=== PATIENT | female | born 1980 | race Asian ===

== ENCOUNTER 2020-08-16 15:06 | Inpatient (IN) | payer MEDICARE, MEDICAID ==
[~2020-08-16] VITALS: Ht 160 cm; Wt 64.0 kg
[2020-08-16] MEDS ORDERED: OLAN5TAB2 PO (17:09)
[2020-08-16] MEDS ORDERED: INFLUENZA VIRUS VACCINE QVS 2020-21 (6MO+)/PF 60 MCG/0.5 ML SYRINGE IM ONE (18:30)
[2020-08-16] MEDS ORDERED: HALOPERIDOL 5 MG TABLET PO PRN (18:30)
[2020-08-16] MEDS ORDERED: LORazepam 2 MG TABLET PO PRN (18:30)
[2020-08-16] MEDS ORDERED: ZOLPIDEM TARTRATE 10 MG TABLET PO PRN (18:30)
[2020-08-16 19:00] VITALS: BP 124/85
[2020-08-17 00:26] VITALS: BP 112/76
[2020-08-17 08:06] VITALS: BP 117/81
[2020-08-17 08:20] LABS: EOSINOPHILS % (AUTO) 3.8 % (1.0-6.0); HEMATOCRIT 40.7 % (36-46); HEMOGLOBIN 13.5 g/dL (12.0-16.0); LYMPHOCYTES # (AUTO) 2.7 K/uL (1.0-4.8); MEAN CORPUSCULAR HEMOGLOBIN 28.7 pg (26.0-34.0); MEAN CORPUSCULAR HGB CONC 33.1 G/dL (31.0-37.0); MEAN CORPUSCULAR VOLUME 87 fL (80-100); MONOCYTES # (AUTO) 0.6 K/uL (0.1-1.0); MONOCYTES % (AUTO) 6.3 % (2.0-9.0); NEUTROPHILS # (AUTO) 5.4 K/uL (1.8-7.7); NEUTROPHILS % (AUTO) 58.9 % (40.0-70.0); PLATELET COUNT (AUTO) 418 K/uL (150-450); RED BLOOD CELL COUNT(AUTO) 4.69 MIL/uL (4.00-5.20)
[2020-08-17 09:08] LABS: ALANINE AMINOTRANSFERASE 13 U/L (12-78); ALBUMIN 3.8 g/dL (3.4-5.0); ALKALINE PHOSPHATASE 65 U/L (46-116); ANION GAP 10 mmol/L (8-16); ASPARTATE AMINOTRANSFERASE 12 U/L (15-37); BILIRUBIN,TOTAL 0.4 mg/dL (0.1-1.0); CARBON DIOXIDE 25 mmol/L (22-29); CHLORIDE 106 mmol/L (98-107); CHOL/HDL RATIO 4.1 (3.9-5.7); CHOLESTEROL 192 mg/dL (131-200); CREATININE 0.54 mg/dL (0.60-1.30); GLOMERULAR FILTR. RATE CALC > 60 mL/min (>60); GLUCOSE,RANDOM 79 mg/dL (70-110); HCG,QUANTITATIVE < 1 mIU/mL (0-6); HDL CHOLESTEROL 47 mg/dL (40-60); LDL CHOL (CALC.) 130 mg/dL (0-130); POTASSIUM 4.1 mmol/L (3.5-5.1); SODIUM SERUM 141 mmol/L (136-145); THYROID STIMULATING HORMONE 3.38 uIU/mL (0.36-3.74); TOTAL PROTEIN, SERUM 7.8 g/dL (6.4-8.2); TRIGLYCERIDES 73 mg/dL (15-150); UREA NITROGEN, BLOOD 9 mg/dL (7-18)
[2020-08-17] MEDS ORDERED: MAGNESIUM HYDROXIDE SUSPENSION 30 ML UDCUP PO PRN (10:15)
[2020-08-17] MEDS ORDERED: ACETAMINOPHEN 325 MG TABLET PO PRN (10:15)
[2020-08-17] MEDS ORDERED: PETROLATUM,WHITE 28 GM JELLY TP PRN (10:15)
[2020-08-17] MEDS ORDERED: CloNIDine HCL 0.1 MG TABLET PO PRN (10:15)
[2020-08-17] MEDS ORDERED: IBUPROFEN 600 MG TABLET PO PRN (10:15)
[2020-08-17] MEDS ORDERED: BACITRACIN 28 GM OINTMENT TP PRN (10:15)
[2020-08-17] MEDS ORDERED: OMEPRAZOLE 20 MG CAPSULE PO PRN (10:15)
[2020-08-17] MEDS ORDERED: ALBUTEROL SULFATE HFA 90 MCG/PUFF 8 GM INHALER IH PRN (10:15)
[2020-08-17] MEDS ORDERED: LOPERAMIDE HCL 2 MG CAPSULE PO PRN (10:15)
[2020-08-17] MEDS ORDERED: DOCUSATE SODIUM 100 MG CAPSULE PO PRN (10:15)
[2020-08-17] MEDS ORDERED: MAG HYDROX/AL HYDROX/SIMETH ES 30 ML SUSPENSION UDCUP PO PRN (10:15)
[2020-08-17] MEDS ORDERED: BENZOCAINE/MENTHOL LOZENGE PO PRN (10:15)
[2020-08-17] MEDS ORDERED: ONDANSETRON HCL 4 MG TABLET PO PRN (10:15)
[2020-08-17 16:21] VITALS: BP 103/61
[2020-08-17] MEDS: QUEtiapine FUMARATE 200 MG TABLET PO SCH (20:46)
[2020-08-18 06:20] VITALS: BP 100/60
[2020-08-18 08:10] VITALS: BP 115/74
[2020-08-18 16:07] VITALS: BP 136/83
[2020-08-18] MEDS: QUEtiapine FUMARATE 200 MG TABLET PO SCH (20:36)
[2020-08-19 00:16] VITALS: BP 126/81
[2020-08-19 08:12] VITALS: BP 106/65
[2020-08-19 16:10] VITALS: BP 111/73
[2020-08-19] MEDS: QUEtiapine FUMARATE 200 MG TABLET PO SCH (20:19)
[2020-08-20 00:34] VITALS: BP 105/67
[2020-08-20 08:17] VITALS: BP 136/78
[2020-08-20 16:05] VITALS: BP 127/79
[2020-08-20] MEDS: QUEtiapine FUMARATE 200 MG TABLET PO SCH (20:18)
[2020-08-21 00:12] VITALS: BP 118/75
[2020-08-21 08:20] VITALS: BP 100/66
[2020-08-21 16:30] VITALS: BP 101/66
[2020-08-21] MEDS: QUEtiapine FUMARATE 200 MG TABLET PO SCH (21:00)
[2020-08-22 01:44] VITALS: BP 111/65
[2020-08-22 08:22] VITALS: BP 104/61
[2020-08-22 17:00] VITALS: BP 100/60
[2020-08-22] MEDS: QUEtiapine FUMARATE 200 MG TABLET PO SCH (20:18)
[2020-08-23 01:33] VITALS: BP 102/63
[2020-08-23 08:20] VITALS: BP 124/62
[2020-08-23 16:10] VITALS: BP 106/65
[2020-08-23] MEDS: QUEtiapine FUMARATE 200 MG TABLET PO SCH (20:50)
[2020-08-24 00:06] VITALS: BP 101/65
[2020-08-24 08:18] LABS: COVID AG,FIA SOURCE NASOPHARYNGEAL
[2020-08-24 08:26] VITALS: BP 114/71
[2020-08-24 16:05] VITALS: BP 104/65
[2020-08-24] MEDS: QUEtiapine FUMARATE 200 MG TABLET PO SCH (20:33)
[2020-08-25 00:11] VITALS: BP 102/64
[2020-08-25 08:12] VITALS: BP 139/78
[2020-08-25 16:27] VITALS: BP 102/67
[2020-08-25] MEDS: QUEtiapine FUMARATE 200 MG TABLET PO SCH (21:00)
[2020-08-26 00:06] VITALS: BP 107/62
[2020-08-26 08:04] VITALS: BP 135/84
[2020-08-26 16:08] VITALS: BP 124/81
[2020-08-26] MEDS: QUEtiapine FUMARATE 200 MG TABLET PO SCH (20:49)
[2020-08-27 00:19] VITALS: BP 113/73
[2020-08-27 08:12] VITALS: BP 106/62
[2020-08-27 16:06] VITALS: BP 100/65
[2020-08-27] MEDS: QUEtiapine FUMARATE 200 MG TABLET PO SCH (21:00)
[2020-08-28 01:36] VITALS: BP 114/75
[2020-08-28 08:05] VITALS: BP 107/68
[2020-08-28 16:04] VITALS: BP 115/88
[2020-08-28] MEDS: QUEtiapine FUMARATE 200 MG TABLET PO SCH (20:31)
[2020-08-29 00:12] VITALS: BP 107/67
[2020-08-29 08:07] VITALS: BP 130/77
[2020-08-29 16:03] VITALS: BP 107/70
[2020-08-29] MEDS: QUEtiapine FUMARATE 200 MG TABLET PO SCH (20:32)
[2020-08-30] VITALS: BP 101/62
[2020-08-30 08:21] VITALS: BP 121/85
[2020-08-30 16:10] VITALS: BP 114/79
[2020-08-30] MEDS: QUEtiapine FUMARATE 200 MG TABLET PO SCH (20:38)
[2020-08-31] VITALS: BP 94/55
[2020-08-31 08:07] VITALS: BP 103/69
[2020-08-31 16:09] VITALS: BP 126/85
[2020-08-31] MEDS: QUEtiapine FUMARATE 300 MG TABLET PO SCH (20:15)
[2020-09-01 00:23] VITALS: BP 102/68
[2020-09-01 08:07] LABS: COVID AG,FIA SOURCE NASOPHARYNGEAL
[2020-09-01 08:34] VITALS: BP 105/71
[2020-09-01 16:07] VITALS: BP 100/60
[2020-09-01] MEDS: QUEtiapine FUMARATE 300 MG TABLET PO SCH (20:40)
[2020-09-02 00:17] VITALS: BP 104/62
[2020-09-02 08:16] VITALS: BP 112/71
[2020-09-02 16:12] VITALS: BP 111/15
[2020-09-02] MEDS: QUEtiapine FUMARATE 300 MG TABLET PO SCH (20:32)
[2020-09-03 00:04] VITALS: BP 109/60
[2020-09-03 08:07] VITALS: BP 112/73
[2020-09-03 16:06] VITALS: BP 106/66
[2020-09-03] MEDS: QUEtiapine FUMARATE 300 MG TABLET PO SCH (20:09)
[2020-09-04 00:05] VITALS: BP 82/57
[2020-09-04 11:39] VITALS: BP 98/66
[2020-09-04 16:14] VITALS: BP 103/64
[2020-09-04] MEDS: QUEtiapine FUMARATE 300 MG TABLET PO SCH (20:41)
[2020-09-05 00:08] VITALS: BP 101/62
[2020-09-05 08:06] VITALS: BP 109/68
[2020-09-05 16:07] VITALS: BP 107/63
[2020-09-05] MEDS: QUEtiapine FUMARATE 300 MG TABLET PO SCH (20:37)
[2020-09-06] VITALS: BP 78/48
[2020-09-06 08:12] VITALS: BP 110/80
[2020-09-06 16:07] VITALS: BP 99/68
[2020-09-06] MEDS: QUEtiapine FUMARATE 300 MG TABLET PO SCH (21:03)
[2020-09-07 00:35] VITALS: BP 101/63
[2020-09-07 08:07] VITALS: BP 104/74
[2020-09-07 09:03] LABS: COVID AG,FIA SOURCE NASOPHARYNGEAL
[2020-09-07 16:03] VITALS: BP 100/71
[2020-09-07] MEDS: QUEtiapine FUMARATE 200 MG TABLET PO SCH (20:19)
[2020-09-08 01:26] VITALS: BP 109/65
[2020-09-08 08:18] VITALS: BP 102/77
[2020-09-08 16:08] VITALS: BP 102/60
[2020-09-08] MEDS: QUEtiapine FUMARATE 200 MG TABLET PO SCH (20:10)
[2020-09-09 04:18] VITALS: BP 100/68
[2020-09-09 08:05] VITALS: BP 100/66
[2020-09-09 16:12] VITALS: BP 105/62
[2020-09-09] MEDS: HALOPERIDOL 10 MG TABLET PO SCH (20:43)
[2020-09-09] MEDS: QUEtiapine FUMARATE 200 MG TABLET PO SCH (20:43)
[2020-09-10 04:00] VITALS: BP 102/64
[2020-09-10 08:09] VITALS: BP 109/64
[2020-09-10 16:11] VITALS: BP 114/66
[2020-09-10] MEDS: HALOPERIDOL 10 MG TABLET PO SCH (20:28)
[2020-09-10] MEDS: QUEtiapine FUMARATE 200 MG TABLET PO SCH (20:28)
[2020-09-11 00:12] VITALS: BP 118/69
[2020-09-11 08:07] VITALS: BP 107/65
[2020-09-11 16:19] VITALS: BP 103/63
[2020-09-11] MEDS: QUEtiapine FUMARATE 200 MG TABLET PO SCH (20:32)
[2020-09-11] MEDS: HALOPERIDOL 10 MG TABLET PO SCH (20:32)
[2020-09-12] VITALS: BP 104/62
[2020-09-12 08:17] VITALS: BP 113/83
[2020-09-12 16:09] VITALS: BP 115/68
[2020-09-12] MEDS: HALOPERIDOL 10 MG TABLET PO SCH (19:59)
[2020-09-12] MEDS: QUEtiapine FUMARATE 200 MG TABLET PO SCH (19:59)
[2020-09-13 00:21] VITALS: BP 77/59
[2020-09-13 08:06] VITALS: BP 107/68
[2020-09-13 16:21] VITALS: BP 112/67
[2020-09-13] MEDS: QUEtiapine FUMARATE 200 MG TABLET PO SCH (20:27)
[2020-09-13] MEDS: HALOPERIDOL 5 MG TABLET PO SCH (20:28)
[2020-09-14 00:15] VITALS: BP 78/52
[2020-09-14 08:07] LABS: COVID AG,FIA SOURCE NASOPHARYNGEAL
[2020-09-14 08:12] VITALS: BP 100/60
[2020-09-14 16:28] VITALS: BP 101/62
[2020-09-14] MEDS: QUEtiapine FUMARATE 200 MG TABLET PO SCH (20:26)
[2020-09-14] MEDS: HALOPERIDOL 5 MG TABLET PO SCH (20:26)
[2020-09-15 06:09] VITALS: BP 104/62
[2020-09-15 08:07] LABS: BASOPHILS % (AUTO) 1.1 % (0.0-2.0); HEMATOCRIT 38.8 % (36-46); HEMOGLOBIN 12.9 g/dL (12.0-16.0); LYMPHOCYTES # (AUTO) 2.5 K/uL (1.0-4.8); LYMPHOCYTES % (AUTO) 27.9 % (22.0-44.0); MEAN CORPUSCULAR HEMOGLOBIN 28.7 pg (26.0-34.0); MEAN CORPUSCULAR HGB CONC 33.2 G/dL (31.0-37.0); MEAN CORPUSCULAR VOLUME 86 fL (80-100); MONOCYTES # (AUTO) 0.6 K/uL (0.1-1.0); MONOCYTES % (AUTO) 7.1 % (2.0-9.0); NEUTROPHILS # (AUTO) 5.4 K/uL (1.8-7.7); NEUTROPHILS % (AUTO) 59.9 % (40.0-70.0); PLATELET COUNT (AUTO) 434 K/uL (150-450); RED BLOOD CELL COUNT(AUTO) 4.49 MIL/uL (4.00-5.20)
[2020-09-15 08:27] VITALS: BP 114/67
[2020-09-15 08:38] LABS: ALANINE AMINOTRANSFERASE 19 U/L (12-78); ALBUMIN 3.7 g/dL (3.4-5.0); ALKALINE PHOSPHATASE 73 U/L (46-116); ANION GAP 9 mmol/L (8-16); ASPARTATE AMINOTRANSFERASE 11 U/L (15-37); BILIRUBIN,TOTAL 0.2 mg/dL (0.1-1.0); CALCIUM, TOTAL 8.7 mg/dL (8.8-10.5); CARBON DIOXIDE 26 mmol/L (22-29); CHLORIDE 107 mmol/L (98-107); CHOL/HDL RATIO 3.6 (3.9-5.7); CHOLESTEROL 184 mg/dL (131-200); CREATININE 0.64 mg/dL (0.60-1.30); GLOMERULAR FILTR. RATE CALC > 60 mL/min (>60); GLUCOSE,RANDOM 86 mg/dL (70-110); HDL CHOLESTEROL 51 mg/dL (40-60); LDL CHOL (CALC.) 119 mg/dL (0-130); POTASSIUM 4.4 mmol/L (3.5-5.1); SODIUM SERUM 142 mmol/L (136-145); THYROID STIMULATING HORMONE 5.33 uIU/mL (0.36-3.74); TOTAL PROTEIN, SERUM 7.6 g/dL (6.4-8.2); TRIGLYCERIDES 68 mg/dL (15-150); UREA NITROGEN, BLOOD 15 mg/dL (7-18)
[2020-09-15 16:27] VITALS: BP 105/73
[2020-09-15] MEDS: HALOPERIDOL 5 MG TABLET PO SCH (20:16)
[2020-09-15] MEDS: QUEtiapine FUMARATE 200 MG TABLET PO SCH (20:16)
[2020-09-16 06:03] VITALS: BP 100/59
[2020-09-16 08:19] VITALS: BP 103/58
[2020-09-16 16:04] VITALS: BP 117/7
[2020-09-16] MEDS: HALOPERIDOL 5 MG TABLET PO SCH (20:12)
[2020-09-16] MEDS: QUEtiapine FUMARATE 200 MG TABLET PO SCH (20:12)
[2020-09-17] MEDS: LEVOTHYROXINE SODIUM 50 MCG TABLET PO SCH (06:04)
[2020-09-17 06:28] VITALS: BP 113/76
[2020-09-17 08:36] VITALS: BP 109/67
[2020-09-17 16:16] VITALS: BP 101/61
[2020-09-17] MEDS: HALOPERIDOL 5 MG TABLET PO SCH (20:37)
[2020-09-17] MEDS: QUEtiapine FUMARATE 200 MG TABLET PO SCH (20:37)
[2020-09-18 05:40] VITALS: BP 100/57
[2020-09-18] MEDS: LEVOTHYROXINE SODIUM 50 MCG TABLET PO SCH (06:07)
[2020-09-18 08:38] VITALS: BP 108/64
[2020-09-18 16:05] VITALS: BP 111/74
[2020-09-18] MEDS: HALOPERIDOL 5 MG TABLET PO SCH (20:47)
[2020-09-18] MEDS: QUEtiapine FUMARATE 200 MG TABLET PO SCH (20:47)
[2020-09-19 01:05] VITALS: BP 102/63
[2020-09-19] MEDS: LEVOTHYROXINE SODIUM 50 MCG TABLET PO SCH (06:15)
[2020-09-19 08:20] VITALS: BP 104/68
[2020-09-19 16:05] VITALS: BP 116/67
[2020-09-19] MEDS: HALOPERIDOL 5 MG TABLET PO SCH (20:32)
[2020-09-19] MEDS: QUEtiapine FUMARATE 200 MG TABLET PO SCH (20:32)
[2020-09-20 00:16] VITALS: BP 108/66
[2020-09-20] MEDS: LEVOTHYROXINE SODIUM 50 MCG TABLET PO SCH (06:14)
[2020-09-20 08:31] VITALS: BP 108/66
[2020-09-20 16:03] VITALS: BP 104/61
[2020-09-20] MEDS: HALOPERIDOL 5 MG TABLET PO SCH (20:09)
[2020-09-20] MEDS: QUEtiapine FUMARATE 200 MG TABLET PO SCH (20:10)
[2020-09-21] MEDS: LEVOTHYROXINE SODIUM 50 MCG TABLET PO SCH (06:30)
[2020-09-21 06:38] VITALS: BP 84/54
[2020-09-21 08:06] VITALS: BP 106/64
[2020-09-21 16:06] VITALS: BP 111/68
[2020-09-21] MEDS: HALOPERIDOL 5 MG TABLET PO SCH (20:36)
[2020-09-21] MEDS: QUEtiapine FUMARATE 200 MG TABLET PO SCH (20:36)
[2020-09-22 00:30] VITALS: BP 88/60
[2020-09-22] MEDS: LEVOTHYROXINE SODIUM 50 MCG TABLET PO SCH (06:10)
[2020-09-22 08:20] VITALS: BP 119/71
[2020-09-22 16:05] VITALS: BP 110/73
[2020-09-22] MEDS: QUEtiapine FUMARATE 200 MG TABLET PO SCH (20:37)
[2020-09-22] MEDS: HALOPERIDOL 5 MG TABLET PO SCH (20:37)
[2020-09-23 00:22] VITALS: BP 83/52
[2020-09-23] MEDS: LEVOTHYROXINE SODIUM 50 MCG TABLET PO SCH (06:23)
[2020-09-23 08:33] VITALS: BP 90/65
[2020-09-23] MEDS ORDERED: QUET200T PO (08:39)
[2020-09-23] MEDS ORDERED: HALO5TAB2 PO (08:40)
[2020-09-23] MEDS ORDERED: LEVO50 PO ×2 (08:53→08:54)
== END 2020-09-23 13:15 | disposition home or self-care (01) | DRG 885 ==
LOC: B3A 18:29 → B2X 08-23 15:11
PROVIDERS: ADMIT Psychiatry & Neurology Psychiatry; ATTEND Psychiatry & Neurology Psychiatry
DX: F20.0 Paranoid schizophrenia (principal); F41.9 Anxiety disorder, unspecified; G47.00 Insomnia, unspecified; Z20.822 Contact with and (suspected) exposure to COVID-19; Z28.20 Immunization not carried out because of patient decision for unspecified reason
CPT/HCPCS: 80053; 80061; 83036; 83735; 84100; 84439; 84443; 84702; 85025; 87081; 87426

== ENCOUNTER 2020-11-10 09:47 | Inpatient (IN) | payer MEDICARE, MEDICAID ==
[~2020-11-10] VITALS: Ht 165.1 cm; Wt 65.8 kg
[~2020-11-10 09:47] MED LIST: HALO5TAB2 PO; LEVO50 PO; QUET200T PO
[2020-11-10] MEDS ORDERED: ACETAMINOPHEN 325 MG TABLET PO PRN (11:15)
[2020-11-10] MEDS ORDERED: LORazepam 2 MG TABLET PO PRN ×2 (11:15→18:00)
[2020-11-10] MEDS ORDERED: ZOLPIDEM TARTRATE 5 MG TABLET PO PRN (11:15)
[2020-11-10] MEDS ORDERED: BENZTROPINE MESYLATE 2 MG TABLET PO ONE (11:15)
[2020-11-10] MEDS ORDERED: HALOPERIDOL 5 MG TABLET PO ONE (11:15)
[2020-11-10 11:24] LABS: BASOPHILS % (AUTO) 1.1 % (0.0-2.0); EOSINOPHILS % (AUTO) 2.8 % (1.0-6.0); HEMATOCRIT 38.4 % (36-46); HEMOGLOBIN 12.4 g/dL (12.0-16.0); LYMPHOCYTES # (AUTO) 2.3 K/uL (1.0-4.8); LYMPHOCYTES % (AUTO) 26.6 % (22.0-44.0); MEAN CORPUSCULAR HEMOGLOBIN 27.9 pg (26.0-34.0); MEAN CORPUSCULAR HGB CONC 32.3 G/dL (31.0-37.0); MEAN CORPUSCULAR VOLUME 86 fL (80-100); MONOCYTES # (AUTO) 0.7 K/uL (0.1-1.0); MONOCYTES % (AUTO) 8.3 % (2.0-9.0); NEUTROPHILS # (AUTO) 5.3 K/uL (1.8-7.7); NEUTROPHILS % (AUTO) 61.2 % (40.0-70.0); PLATELET COUNT (AUTO) 464 K/uL (150-450); RED BLOOD CELL COUNT(AUTO) 4.45 MIL/uL (4.00-5.20)
[2020-11-10 11:39] LABS: ANION GAP 11 mmol/L (8-16); CALCIUM, TOTAL 8.8 mg/dL (8.8-10.5); CARBON DIOXIDE 24 mmol/L (22-29); CHLORIDE 106 mmol/L (98-107); CREATININE 0.52 mg/dL (0.60-1.30); GLOMERULAR FILTR. RATE CALC > 60 mL/min (>60); GLUCOSE,RANDOM 88 mg/dL (70-110); POTASSIUM 4.1 mmol/L (3.5-5.1); SODIUM SERUM 141 mmol/L (136-145); UREA NITROGEN, BLOOD 9 mg/dL (7-18)
[2020-11-10 11:52] LABS: COVID AG,FIA SOURCE NASOPHARYNGEAL
[2020-11-10 11:53] LABS: ALANINE AMINOTRANSFERASE 18 U/L (12-78); ALKALINE PHOSPHATASE 71 U/L (46-116); ASPARTATE AMINOTRANSFERASE 12 U/L (15-37); BILIRUBIN,TOTAL 0.4 mg/dL (0.1-1.0); CHOLESTEROL 160 mg/dL (131-200); TOTAL PROTEIN, SERUM 7.3 g/dL (6.4-8.2); TRIGLYCERIDES 99 mg/dL (15-150)
[2020-11-10 12:04] LABS: APPEARANCE,URINE CLEAR (CLEAR); BILIRUBIN,URINE NEGATIVE (NEGATIVE); GLUCOSE, URINE (UA) NEGATIVE (NEGATIVE); KETONES,URINE NEGATIVE (NEGATIVE); LEUKOCYTE ESTERASE ,URINE MODERATE (NEGATIVE); NITRATE,URINE NEGATIVE (NEGATIVE); OCCULT BLOOD,URINE NEGATIVE (NEGATIVE); PROTEIN,URINE NEGATIVE (NEGATIVE); UROBILINOGEN,URINE 0.2 mg/dL (<=1.0)
[2020-11-10 12:10] LABS: AMPHET/METH SCREEN,URINE NEGATIVE (NEGATIVE); BARBITURATE SCREEN, URINE NEGATIVE (NEGATIVE); BENZODIAZEPINES SCREEN,URINE NEGATIVE (NEGATIVE); CANNABINOID SCREEN,URINE NEGATIVE (NEGATIVE); COCAINE SCREEN,URINE NEGATIVE (NEGATIVE); METHADONE SCREEN, URINE NEGATIVE (NEGATIVE); OPIATE SCREEN,URINE NEGATIVE (NEGATIVE)
[2020-11-10 12:11] LABS: PHENCYCLIDINE SCREEN,URINE NEGATIVE (NEGATIVE)
[2020-11-10 12:32] LABS: CHOL/HDL RATIO 2.7 (3.9-5.7); FREE T4 (FREE THYROXINE) 1.06 ng/dL (0.76-1.46); HCG,QUANTITATIVE < 1 mIU/mL (0-6); HDL CHOLESTEROL 59 mg/dL (40-60); LDL CHOL (CALC.) 81 mg/dL (0-130); THYROID STIMULATING HORMONE 2.53 uIU/mL (0.36-3.74)
[2020-11-10 12:32] LABS: SQUAMOUS EPITHELIAL CELL,UR Few /LPF (None Seen)
[2020-11-10 12:35] LABS: RBC,URINE None Seen /HPF (0-2)
[2020-11-10 12:37] LABS: BACTERIA,URINE Few /HPF (None Seen)
[2020-11-10 13:14] LABS: ALBUMIN 3.8 g/dL (3.4-5.0)
[2020-11-10] MEDS ORDERED: ZOLPIDEM TARTRATE 10 MG TABLET PO PRN (18:00)
[2020-11-10] MEDS ORDERED: HALOPERIDOL 5 MG TABLET PO PRN (18:00)
[2020-11-10 21:25] VITALS: BP 115/77
[2020-11-11 05:22] VITALS: BP 102/68
[2020-11-11 08:24] VITALS: BP 106/69
[2020-11-11] MEDS ORDERED: GuaiFENesin/D-METHORPHAN [SUGAR-FREE] 200-20MG/10 ML SYRUP UDCUP PO PRN (11:45)
[2020-11-11] MEDS ORDERED: ALBUTEROL SULFATE HFA 90 MCG/PUFF 8 GM INHALER IH PRN (11:45)
[2020-11-11] MEDS ORDERED: ACETAMINOPHEN 325 MG TABLET PO PRN (11:45)
[2020-11-11] MEDS ORDERED: LOPERAMIDE HCL 2 MG CAPSULE PO PRN (11:45)
[2020-11-11] MEDS ORDERED: MAGNESIUM HYDROXIDE SUSPENSION 30 ML UDCUP PO PRN (11:45)
[2020-11-11] MEDS ORDERED: IBUPROFEN 400 MG TABLET PO PRN (11:45)
[2020-11-11] MEDS ORDERED: DOCUSATE SODIUM 100 MG CAPSULE PO PRN (11:45)
[2020-11-11] MEDS ORDERED: ONDANSETRON HCL 4 MG TABLET PO PRN (11:45)
[2020-11-11] MEDS ORDERED: NICOTINE 14 MG/24 HOUR PATCH TD PRN (11:45)
[2020-11-11] MEDS ORDERED: PETROLATUM,WHITE 28 GM JELLY TP PRN (11:45)
[2020-11-11] MEDS ORDERED: CloNIDine HCL 0.1 MG TABLET PO PRN (11:45)
[2020-11-11] MEDS ORDERED: MAG HYDROX/AL HYDROX/SIMETH ES 30 ML SUSPENSION UDCUP PO PRN (11:45)
[2020-11-11 16:19] VITALS: BP 125/82
[2020-11-11] MEDS: HALOPERIDOL 5 MG TABLET PO SCH (20:29)
[2020-11-11] MEDS: QUEtiapine FUMARATE 200 MG TABLET PO SCH (20:29)
[2020-11-12] VITALS: BP 83/52
[2020-11-12 08:17] VITALS: BP 140/75
[2020-11-12 16:29] VITALS: BP 130/70
[2020-11-12] MEDS: HALOPERIDOL 5 MG TABLET PO SCH (20:39)
[2020-11-12] MEDS: QUEtiapine FUMARATE 200 MG TABLET PO SCH (20:39)
[2020-11-13] VITALS: BP 93/57
[2020-11-13 07:39] LABS: BASOPHILS % (AUTO) 1.1 % (0.0-2.0); EOSINOPHILS % (AUTO) 4.3 % (1.0-6.0); HEMATOCRIT 38.9 % (36-46); HEMOGLOBIN 12.5 g/dL (12.0-16.0); LYMPHOCYTES # (AUTO) 2.4 K/uL (1.0-4.8); LYMPHOCYTES % (AUTO) 27.7 % (22.0-44.0); MEAN CORPUSCULAR HEMOGLOBIN 28.1 pg (26.0-34.0); MEAN CORPUSCULAR HGB CONC 32.2 G/dL (31.0-37.0); MEAN CORPUSCULAR VOLUME 87 fL (80-100); MONOCYTES # (AUTO) 0.7 K/uL (0.1-1.0); MONOCYTES % (AUTO) 7.7 % (2.0-9.0); NEUTROPHILS # (AUTO) 5.2 K/uL (1.8-7.7); NEUTROPHILS % (AUTO) 59.2 % (40.0-70.0); PLATELET COUNT (AUTO) 441 K/uL (150-450); RED BLOOD CELL COUNT(AUTO) 4.45 MIL/uL (4.00-5.20)
[2020-11-13 07:59] LABS: ALANINE AMINOTRANSFERASE 15 U/L (12-78); ALBUMIN 3.3 g/dL (3.4-5.0); ALKALINE PHOSPHATASE 70 U/L (46-116); ANION GAP 7 mmol/L (8-16); ASPARTATE AMINOTRANSFERASE 9 U/L (15-37); BILIRUBIN,TOTAL 0.3 mg/dL (0.1-1.0); CALCIUM, TOTAL 8.6 mg/dL (8.8-10.5); CARBON DIOXIDE 26 mmol/L (22-29); CHLORIDE 104 mmol/L (98-107); CREATININE 0.57 mg/dL (0.60-1.30); FREE T4 (FREE THYROXINE) 0.96 ng/dL (0.76-1.46); GLOMERULAR FILTR. RATE CALC > 60 mL/min (>60); GLUCOSE,RANDOM 79 mg/dL (70-110); HCG,QUANTITATIVE < 1 mIU/mL (0-6); POTASSIUM 4.5 mmol/L (3.5-5.1); SODIUM SERUM 137 mmol/L (136-145); TOTAL PROTEIN, SERUM 6.5 g/dL (6.4-8.2); UREA NITROGEN, BLOOD 12 mg/dL (7-18)
[2020-11-13 08:02] LABS: HEMOGLOBIN A1C 5.3 % (3.8-5.6)
[2020-11-13 08:30] VITALS: BP 111/72
[2020-11-13 16:15] VITALS: BP 116/66
[2020-11-13] MEDS: HALOPERIDOL 5 MG TABLET PO SCH (21:01)
[2020-11-13] MEDS: QUEtiapine FUMARATE 200 MG TABLET PO SCH (21:01)
[2020-11-14 02:15] VITALS: BP 109/63
[2020-11-14 08:31] VITALS: BP 102/66
[2020-11-14 16:28] VITALS: BP 101/62
[2020-11-14] MEDS: QUEtiapine FUMARATE 200 MG TABLET PO SCH (20:34)
[2020-11-14] MEDS: HALOPERIDOL 5 MG TABLET PO SCH (20:34)
[2020-11-15 05:40] VITALS: BP 102/68
[2020-11-15 08:09] VITALS: BP 104/72
[2020-11-15 08:26] LABS: COVID AG,FIA SOURCE NASOPHARYNGEAL
[2020-11-15 16:11] VITALS: BP 100/62
[2020-11-15] MEDS: QUEtiapine FUMARATE 200 MG TABLET PO SCH (20:11)
[2020-11-15] MEDS: HALOPERIDOL 5 MG TABLET PO SCH (20:11)
[2020-11-16 05:15] VITALS: BP 108/69
[2020-11-16 08:03] VITALS: BP 109/60
[2020-11-16 19:32] VITALS: BP 117/62
[2020-11-16] MEDS: HALOPERIDOL 5 MG TABLET PO SCH (20:41)
[2020-11-16] MEDS: QUEtiapine FUMARATE 200 MG TABLET PO SCH (20:41)
[2020-11-17] VITALS: BP 80/48
[2020-11-17 08:03] VITALS: BP 101/62
[2020-11-17 16:03] VITALS: BP 112/66
[2020-11-17] MEDS: QUEtiapine FUMARATE 200 MG TABLET PO SCH (20:06)
[2020-11-17] MEDS: HALOPERIDOL 5 MG TABLET PO SCH (20:06)
[2020-11-18 00:03] VITALS: BP 117/66
[2020-11-18 08:11] VITALS: BP 106/65
[2020-11-18] MEDS: MULTIVITAMINS WITH MINERALS, THERAPEUTIC TABLET PO SCH (08:26)
[2020-11-18 16:05] VITALS: BP 115/70
[2020-11-18] MEDS: QUEtiapine FUMARATE 200 MG TABLET PO SCH (20:12)
[2020-11-18] MEDS: HALOPERIDOL 5 MG TABLET PO SCH (20:13)
[2020-11-19 00:11] VITALS: BP 117/79
[2020-11-19 08:02] VITALS: BP 98/68
[2020-11-19] MEDS: MULTIVITAMINS WITH MINERALS, THERAPEUTIC TABLET PO SCH (08:17)
[2020-11-19 16:02] VITALS: BP 109/68
[2020-11-19] MEDS: QUEtiapine FUMARATE 200 MG TABLET PO SCH (20:03)
[2020-11-19] MEDS: HALOPERIDOL 5 MG TABLET PO SCH (20:03)
[2020-11-20 01:50] VITALS: BP 112/62
[2020-11-20 08:32] VITALS: BP 101/62
[2020-11-20] MEDS: MULTIVITAMINS WITH MINERALS, THERAPEUTIC TABLET PO SCH (08:37)
[2020-11-20 16:04] VITALS: BP 100/66
[2020-11-20] MEDS: HALOPERIDOL 5 MG TABLET PO SCH (20:38)
[2020-11-20] MEDS: QUEtiapine FUMARATE 200 MG TABLET PO SCH (20:38)
[2020-11-21 01:10] VITALS: BP 101/62
[2020-11-21 08:01] VITALS: BP 106/67
[2020-11-21] MEDS: MULTIVITAMINS WITH MINERALS, THERAPEUTIC TABLET PO SCH (08:18)
[2020-11-21 15:57] VITALS: BP 112/66
[2020-11-21 16:03] VITALS: BP 112/66
[2020-11-21] MEDS: HALOPERIDOL 5 MG TABLET PO SCH (20:10)
[2020-11-21] MEDS: QUEtiapine FUMARATE 200 MG TABLET PO SCH (20:10)
[2020-11-22 00:59] VITALS: BP 103/64
[2020-11-22 07:36] LABS: COVID AG,FIA SOURCE NASOPHARYNGEAL
[2020-11-22 08:04] VITALS: BP 104/61
[2020-11-22] MEDS: MULTIVITAMINS WITH MINERALS, THERAPEUTIC TABLET PO SCH (08:25)
[2020-11-22 16:02] VITALS: BP 101/64
[2020-11-22] MEDS: HALOPERIDOL 5 MG TABLET PO SCH (20:26)
[2020-11-22] MEDS: QUEtiapine FUMARATE 200 MG TABLET PO SCH (20:26)
[2020-11-23 00:56] VITALS: BP 104/62
[2020-11-23 08:13] VITALS: BP 104/62
[2020-11-23] MEDS: MULTIVITAMINS WITH MINERALS, THERAPEUTIC TABLET PO SCH (08:16)
[2020-11-23 16:03] VITALS: BP 111/74
[2020-11-23] MEDS: QUEtiapine FUMARATE 200 MG TABLET PO SCH (19:53)
[2020-11-23] MEDS: HALOPERIDOL 5 MG TABLET PO SCH (19:53)
[2020-11-24 00:40] VITALS: BP 105/62
[2020-11-24 08:14] VITALS: BP 108/51
[2020-11-24] MEDS: MULTIVITAMINS WITH MINERALS, THERAPEUTIC TABLET PO SCH (08:37)
[2020-11-24 16:05] VITALS: BP 101/72
[2020-11-24] MEDS: HALOPERIDOL 5 MG TABLET PO SCH (20:50)
[2020-11-24] MEDS: QUEtiapine FUMARATE 200 MG TABLET PO SCH (20:50)
[2020-11-25 00:43] VITALS: BP 103/62
[2020-11-25 08:08] VITALS: BP 100/67
[2020-11-25] MEDS: MULTIVITAMINS WITH MINERALS, THERAPEUTIC TABLET PO SCH (08:33)
[2020-11-25 16:03] VITALS: BP 110/69
[2020-11-25] MEDS: HALOPERIDOL 5 MG TABLET PO SCH (20:18)
[2020-11-25] MEDS: QUEtiapine FUMARATE 200 MG TABLET PO SCH (20:18)
[2020-11-26 00:17] VITALS: BP 106/68
[2020-11-26 08:05] VITALS: BP 106/55
[2020-11-26] MEDS: MULTIVITAMINS WITH MINERALS, THERAPEUTIC TABLET PO SCH (08:27)
[2020-11-26 16:12] VITALS: BP 115/73
[2020-11-26] MEDS: QUEtiapine FUMARATE 200 MG TABLET PO SCH (20:54)
[2020-11-26] MEDS: HALOPERIDOL 5 MG TABLET PO SCH (20:54)
[2020-11-27 02:16] VITALS: BP 110/58
[2020-11-27 08:04] VITALS: BP 109/64
[2020-11-27] MEDS: MULTIVITAMINS WITH MINERALS, THERAPEUTIC TABLET PO SCH (08:17)
[2020-11-27 16:11] VITALS: BP 140/63
[2020-11-27] MEDS: QUEtiapine FUMARATE 200 MG TABLET PO SCH (20:22)
[2020-11-27] MEDS: HALOPERIDOL 5 MG TABLET PO SCH (20:24)
[2020-11-28 00:05] VITALS: BP 134/66
[2020-11-28 08:05] VITALS: BP 102/53
[2020-11-28] MEDS: MULTIVITAMINS WITH MINERALS, THERAPEUTIC TABLET PO SCH (08:39)
[2020-11-28 16:06] VITALS: BP 107/62
[2020-11-28] MEDS: HALOPERIDOL 5 MG TABLET PO SCH (20:50)
[2020-11-28] MEDS: QUEtiapine FUMARATE 200 MG TABLET PO SCH (20:50)
[2020-11-29 04:54] VITALS: BP 105/58
[2020-11-29 07:40] LABS: COVID AG,FIA SOURCE NASOPHARYNGEAL
[2020-11-29] MEDS: MULTIVITAMINS WITH MINERALS, THERAPEUTIC TABLET PO SCH (08:03)
[2020-11-29 08:07] VITALS: BP 100/66
[2020-11-29 16:10] VITALS: BP 100/68
[2020-11-29] MEDS: HALOPERIDOL 5 MG TABLET PO SCH (20:06)
[2020-11-29] MEDS: QUEtiapine FUMARATE 200 MG TABLET PO SCH (20:06)
[2020-11-30 00:09] VITALS: BP 112/71
[2020-11-30] MEDS: MULTIVITAMINS WITH MINERALS, THERAPEUTIC TABLET PO SCH (08:03)
[2020-11-30 08:12] VITALS: BP 90/64
[2020-11-30 16:07] VITALS: BP 117/73
[2020-11-30] MEDS: HALOPERIDOL 5 MG TABLET PO SCH (20:05)
[2020-11-30] MEDS: QUEtiapine FUMARATE 200 MG TABLET PO SCH (20:05)
[2020-12-01 00:39] VITALS: BP 103/62
[2020-12-01 08:02] VITALS: BP 104/61
[2020-12-01] MEDS: MULTIVITAMINS WITH MINERALS, THERAPEUTIC TABLET PO SCH (08:38)
[2020-12-01 16:20] VITALS: BP 104/63
[2020-12-01] MEDS: QUEtiapine FUMARATE 200 MG TABLET PO SCH (21:06)
[2020-12-01] MEDS: HALOPERIDOL 5 MG TABLET PO SCH (21:06)
[2020-12-02 00:13] VITALS: BP 109/69
[2020-12-02 08:00] VITALS: BP 100/60
[2020-12-02] MEDS: MULTIVITAMINS WITH MINERALS, THERAPEUTIC TABLET PO SCH (08:12)
[2020-12-02 16:05] VITALS: BP 102/61
[2020-12-02] MEDS: QUEtiapine FUMARATE 200 MG TABLET PO SCH (20:49)
[2020-12-02] MEDS: HALOPERIDOL 5 MG TABLET PO SCH (20:49)
[2020-12-03 00:05] VITALS: BP 101/61
[2020-12-03 08:06] VITALS: BP 102/63
[2020-12-03] MEDS: MULTIVITAMINS WITH MINERALS, THERAPEUTIC TABLET PO SCH (08:17)
[2020-12-03 16:14] VITALS: BP 112/68
[2020-12-03] MEDS: HALOPERIDOL 5 MG TABLET PO SCH (20:38)
[2020-12-03] MEDS: QUEtiapine FUMARATE 200 MG TABLET PO SCH (20:39)
[2020-12-04 01:55] VITALS: BP 103/61
[2020-12-04 08:17] VITALS: BP 100/62
[2020-12-04] MEDS: MULTIVITAMINS WITH MINERALS, THERAPEUTIC TABLET PO SCH (08:19)
[2020-12-04 16:25] VITALS: BP 120/64
[2020-12-04] MEDS: HALOPERIDOL 5 MG TABLET PO SCH (20:44)
[2020-12-04] MEDS: QUEtiapine FUMARATE 200 MG TABLET PO SCH (20:44)
[2020-12-05 06:16] VITALS: BP 96/63
[2020-12-05] MEDS: MULTIVITAMINS WITH MINERALS, THERAPEUTIC TABLET PO SCH (08:23)
[2020-12-05 08:55] VITALS: BP 98/62
[2020-12-05 16:13] VITALS: BP 115/69
[2020-12-05] MEDS: QUEtiapine FUMARATE 200 MG TABLET PO SCH (20:32)
[2020-12-05] MEDS: HALOPERIDOL 5 MG TABLET PO SCH (20:33)
[2020-12-06 00:45] VITALS: BP 104/62
[2020-12-06 08:13] LABS: COVID AG,FIA SOURCE NASOPHARYNGEAL
[2020-12-06 08:19] VITALS: BP 101/67
[2020-12-06] MEDS: MULTIVITAMINS WITH MINERALS, THERAPEUTIC TABLET PO SCH (09:53)
[2020-12-06 16:21] VITALS: BP 101/62
[2020-12-06] MEDS: QUEtiapine FUMARATE 200 MG TABLET PO SCH (20:11)
[2020-12-06] MEDS: HALOPERIDOL 5 MG TABLET PO SCH (20:11)
[2020-12-07 01:03] VITALS: BP 103/61
[2020-12-07] MEDS: MULTIVITAMINS WITH MINERALS, THERAPEUTIC TABLET PO SCH (08:23)
[2020-12-07 16:04] VITALS: BP 104/69
[2020-12-07] MEDS: HALOPERIDOL 5 MG TABLET PO SCH (20:30)
[2020-12-07] MEDS: QUEtiapine FUMARATE 200 MG TABLET PO SCH (20:30)
[2020-12-08 01:50] VITALS: BP 102/64
[2020-12-08 08:16] VITALS: BP 100/61
[2020-12-08] MEDS: MULTIVITAMINS WITH MINERALS, THERAPEUTIC TABLET PO SCH (08:57)
[2020-12-08 16:06] VITALS: BP 113/71
[2020-12-08] MEDS: HALOPERIDOL 5 MG TABLET PO SCH (20:20)
[2020-12-08] MEDS: QUEtiapine FUMARATE 200 MG TABLET PO SCH (20:20)
[2020-12-09 01:44] VITALS: BP 102/62
[2020-12-09] MEDS: MULTIVITAMINS WITH MINERALS, THERAPEUTIC TABLET PO SCH (08:38)
[2020-12-09 09:08] VITALS: BP 104/71
[2020-12-09 16:08] VITALS: BP 97/61
[2020-12-09] MEDS: QUEtiapine FUMARATE 200 MG TABLET PO SCH (20:28)
[2020-12-09] MEDS: HALOPERIDOL 5 MG TABLET PO SCH (20:28)
[2020-12-10 00:09] VITALS: BP 95/65
[2020-12-10 08:09] VITALS: BP 109/66
[2020-12-10] MEDS: MULTIVITAMINS WITH MINERALS, THERAPEUTIC TABLET PO SCH (10:26)
[2020-12-10 16:08] VITALS: BP 103/52
[2020-12-10] MEDS: HALOPERIDOL 5 MG TABLET PO SCH (21:10)
[2020-12-10] MEDS: QUEtiapine FUMARATE 200 MG TABLET PO SCH (21:10)
[2020-12-11 02:35] VITALS: BP 104/56
[2020-12-11 08:11] VITALS: BP 102/61
[2020-12-11] MEDS: MULTIVITAMINS WITH MINERALS, THERAPEUTIC TABLET PO SCH (09:17)
== END 2020-12-11 13:03 | disposition home or self-care (01) | DRG 885 ==
LOC: EMS 09:47 → B2S 16:27
PROVIDERS: ADMIT Psychiatry & Neurology Child & Adolescent Psychiatry; ATTEND Psychiatry & Neurology Child & Adolescent Psychiatry
DX: F20.0 Paranoid schizophrenia (principal); E03.9 Hypothyroidism, unspecified; I95.9 Hypotension, unspecified; D47.3 Essential (hemorrhagic) thrombocythemia; F94.0 Selective mutism; Z20.822 Contact with and (suspected) exposure to COVID-19; F41.9 Anxiety disorder, unspecified; Z59.0 Homelessness; Z91.012 Allergy to eggs
CPT/HCPCS: 80053; 80061; 81001; 83036; 84436; 84439; 84443; 84702; 85025; 99285; G0480